=== PATIENT | male | born 1995 | race Hispanic/Latino ===

== ENCOUNTER 2023-10-29 19:08 | Emergency (ER) | payer BC, SELFPAY ==
[2023-10-29 19:15] VITALS: BP 154/105; PULSE 108; RESP 16; TEMP 36.2; O2SAT 99; BMI 32.3
--- NOTE | 2023-10-29 19:20 | DI.RAD.S_ITS ---
PROCEDURE: XR CLAVICLE LT INDICATIONS: fell skateboarding TECHNIQUE: 2 views of the clavicle were acquired. COMPARISON: None. FINDINGS: Bones: Acromioclavicular separation measuring approximately 17 millimeters. No acute fractures are seen. No suspicious bony lesions. Soft tissues: No suspicious soft tissue calcifications. IMPRESSION: AC separation consistent with [place] type 3 classification. No acute fracture seen. Dictated by: Robel Lee M.D. on 10/29/2023 at 19:53 Approved by: Robel Lee M.D. on 10/29/2023 at 19:55
--- NOTE | 2023-10-29 19:55 | ED.GENADULT ---
HPI - General Adult General Chief complaint: Extremity Injury, Upper Stated complaint: lt shoulder inj Time Seen by Provider: 10/29/23 19:37 Source: patient Mode of arrival: Ambulatory History of Present Illness HPI narrative: 28-year-old male here for evaluation of a left shoulder injury. He states he was at a skate park earlier today. He states that he fell and landed on the top of his shoulder. He states that he feels like his clavicle is dislocated. He has broken his right clavicle in the past. No other injuries from the event. Did not hit his head. No loss of consciousness. Related Data Previous Rx's Medication Instructions Recorded hydrocodone 5 mg-acetaminophen 325 1 tab PO TID PRN pain #14 tabs 10/29/23 mg tablet Allergies Allergy/AdvReac Type Severity Reaction Status Date / Time No Known Drug Allergies Allergy Verified 10/29/23 19:15 Review of Systems Constitutional Constitutional: Reports system reviewed and no additional complaints, except as documented Musculoskeletal Musculoskeletal: Reports system reviewed and no additional complaints, except as documented Integumentary/Breasts Skin/Breast: Reports system reviewed and no additional complaints, except as documented Neurologic Neurologic: Reports system reviewed and no additional complaints, except as documented Patient History Social History Smoking Status: Never smoker Smoking Status: Never smoker alcohol intake frequency: a few times a week Alcohol type: beer Substance Use Type: marijuana Exam Initial Vital Signs Initial Vital Signs: Vital Signs Temperature 97.2 F L 10/29/23 19:15 Pulse Rate 108 H 10/29/23 19:15 Respiratory Rate 16 10/29/23 19:15 Blood Pressure 154/105 H 10/29/23 19:15 Pulse Oximetry 99 10/29/23 19:15 Oxygen Delivery Method Room Air 10/29/23 19:15 HENMT Head: normal to inspection and normocephalic Skin Other: Tenting of the skin of the left AC joint but no breaks in the skin Extrem Other: Obvious tenting of the distal portion of the left clavicle. Course Orders Ordered: ED Orders 10/29/23 19:20 XR clavicle LT Stat Vital Signs Vital signs: Vital Signs - 8 hr 10/29/23 19:15 Temperature 97.2 F L Pulse Rate 108 H Respiratory Rate 16 Blood Pressure 154/105 H Pulse Oximetry 99 Oxygen Delivery Method Room Air Medical Decision Making Imaging Data Extremity x-ray #1: Radiologist's Impression: PROCEDURE: XR CLAVICLE LT INDICATIONS: fell skateboarding TECHNIQUE: 2 views of the clavicle were acquired. COMPARISON: None. FINDINGS: Bones: Acromioclavicular separation measuring approximately 17 millimeters. No acute fractures are seen. No suspicious bony lesions. Soft tissues: No suspicious soft tissue calcifications. IMPRESSION: AC separation consistent with [place] type 3 classification. No acute fracture seen. MDM Narrative Medical decision making narrative: Patient does a grade 3 left AC separation. No dislocations noted. Patient was placed in his sling for comfort. Will provide pain medication. Instructions for follow-up with Orthopedic surgery. Patient became angry during his stay. Unsure of the reason for this. I advised him that we would provide pain medication when I left the room after my initial evaluation. Patient was discharged but left the emergency department prior to receiving his discharge paperwork. Discharge Plan Departure Patient Disposition: Home Clinical Impression: shoulder Instructions: DI for AC Joint Separation Activity Restrictions/Additional Instructions: The sling is for your comfort. You can take it off to shower. I do recommend that you contact the Orthopedic Department of the number provided below for a follow-up. Use the pain medication as needed. Return to the emergency department for new symptoms. Prescriptions: New hydrocodone-acetaminophen 5-325 mg tablet 1 tab PO TID PRN (Reason: pain) Qty: 14 0RF Referrals: Ebony Chavis MD [Physician] - Stand Alone Forms: Patient Portal/API
== END 2023-10-29 20:12 | disposition home or self-care (01) ==
PROVIDERS: Emergency Provider Emergency Medicine
DX: S43.006A Unspecified dislocation of unspecified shoulder joint, initial encounter (principal); V00.131A Fall from skateboard, initial encounter
CPT/HCPCS: 73000; 99282; 99283

== ENCOUNTER 2024-02-26 19:53 | Emergency (ER) | payer BC, SELFPAY ==
[2024-02-26] VITALS (7 sets, daily range): BP systolic 140–180; BP diastolic 75–111; PULSE 85–137; RESP 8–22; TEMP 36.9–37.2; O2SAT 95–100; BMI 34.1
--- NOTE | 2024-02-26 19:59 | DI.RAD.S_ITS ---
PROCEDURE: XR CHEST 1V INDICATIONS: chest pain TECHNIQUE: One view of the chest was acquired. COMPARISON: Located Within [facility], CR, XR CHEST 1 VIEW, 01/30/2024, 11:02. Located Within [facility], CR, XR CHEST 1 VIEW, 04/10/2023, 22:33. FINDINGS: Surgical changes and devices: Prior postoperative change of the left distal clavicle can be seen, with removal of the prior hardware. Lungs and pleura: On this semiupright portable chest examination, no large pneumothorax or large pleural effusions are seen. No focal infiltrates are seen. Mediastinum: Mediastinal contours appear normal. Heart size is normal. Bones and chest wall: No suspicious bony lesions. Posttraumatic changes can be seen in both distal clavicles. Overlying soft tissues appear unremarkable. IMPRESSION: Limited portable chest examination, without a significant cardiopulmonary abnormality identified. Prior postoperative and posttraumatic changes can be seen. Dictated by: Juan M Farias M.D. on 02/26/2024 at 19:28 Approved by: Juan M Farias M.D. on 02/26/2024 at 19:29
[2024-02-26] MEDS: ASPIRIN 81 MG CHEW TAB 324 MG PO (20:05)
--- NOTE | 2024-02-26 20:05 | EKG_ITS ---
[address] [address] Test Date: 2024-02-26 Pat Name: Mitchell Sanchez [facility] Room: Gender: Male Building Drafter: : 1995 Requested By: Order Number: [id number] Reading MD: Linden Souza Measurements Intervals [place] Rate: 123 P: 34 RI: 132 QRS: 84 QRSD: 82 T: 29 QT: 306 QTc: 438 Interpretive Statements Sinus tachycardia Doubt Septal infarct Possible Lateral infarct , age undetermined Electronically Signed On 02-28-2024 8:46:29 PDT by Linden Souza
--- NOTE | 2024-02-26 20:18 | ED_ITS ---
HPI - Chest Pain General Chief Complaint: Chest Pain Stated Complaint: chest px, takes meds for cardiac Time Seen by Provider: 02/26/24 20:08 Source: patient Mode of arrival: Ambulatory History of Present Illness HPI narrative: Patient is a 21-year-old male. He does have history of anxiety. The chief complaint states he takes ?cardiac? medications however the medication that he describes is hydroxyzine for anxiety. He states that he did drink quite a bit last evening. He also did some cocaine last evening. He states he was very ?hung over? today. He did smoke some marijuana this morning. He was here for evaluation of palpitations, chest discomfort and increased anxiety. No fevers. No shortness of breath. No abdominal pain. Related Data Previous Rx's Medication Instructions Recorded hydrocodone 5 mg-acetaminophen 325 1 tab PO TID PRN pain #14 tabs 10/29/23 mg tablet Allergies Allergy/AdvReac Type Severity Reaction Status Date / Time No Known Drug Allergies Allergy Verified 02/26/24 19:55 Review of Systems Review of Systems ROS Unobtainable: All systems reviewed & are unremarkable except as noted in HPI and below Patient History Social History Smoking Status: Never smoker Smoking Status: Never smoker alcohol intake frequency: a few times a week Alcohol type: beer Substance Use Type: marijuana and crack/cocaine Exam Initial Vital Signs Initial Vital Signs: Vital Signs Temperature 99.0 F 02/26/24 19:55 Pulse Rate 137 H 02/26/24 19:55 Respiratory Rate 18 02/26/24 19:55 Blood Pressure 180/111 H 02/26/24 19:55 Pulse Oximetry 99 02/26/24 19:55 Oxygen Delivery Method Room Air 02/26/24 19:55 Const General: cooperative, well developed and No ill appearing HENNJ Head: normal to inspection and normocephalic Resp Effort & Inspection: normal respiratory effort Auscultation: clear to auscultation bilaterally Cardio Rate: tachycardic Rhythm: regular rhythm GI Inspection: normal to inspection Skin General: no rashes or lesions noted Neuro General: patient alert, patient awake and moves all extremities Extrem General: capillary refill normal Course Orders Ordered: ED Orders 02/26/24 19:59 XR chest 1V Stat EKG-12 Lead Stat 02/26/24 20:00 Complete Blood Count AUTO DIFF Stat Comprehensive Metabolic Panel Stat Lipase Stat Magnesium Stat Troponin & CK Cardiac Panel Stat Discontinued Medications Aspirin (Aspirin 81 Mg Chew Tab) 324 mg PO NOW ONE Stop: 02/26/24 20:00 Last Admin: 02/26/24 20:05 Dose: 324 mg Documented By: Sodium Chloride (Normal Saline 0.9%) 1,000 mls @ 1,000 mls/hr IV BOLUS ONE Stop: 02/26/24 21:17 Last Infusion: 02/26/24 21:40 Dose: Infused Documented By: Admin: 02/26/24 20:20 Dose: 1,000 mls/hr Documented By: Propranolol HCl (Propranolol 10 Mg Tablet) 10 mg PO NOW ONE Stop: 02/26/24 20:16 Last Admin: 02/26/24 20:21 Dose: 10 mg Documented By: Vital Signs Vital signs: Vital Signs - 8 hr 02/26/24 19:55 02/26/24 20:18 02/26/24 20:30 Temperature 99.0 F Pulse Rate 137 H 131 H 124 H Respiratory Rate 18 22 18 Blood Pressure 180/111 H Pulse Oximetry 99 99 100 Oxygen Delivery Method Room Air Room Air 02/26/24 20:52 02/26/24 21:00 02/26/24 21:30 Temperature Pulse Rate 98 H 100 H 90 Respiratory Rate 8 L 18 Blood Pressure 140/103 H Pulse Oximetry 95 95 Oxygen Delivery Method 02/26/24 21:41 Temperature 98.5 F Pulse Rate 85 Respiratory Rate 18 Blood Pressure 140/75 Pulse Oximetry 98 Oxygen Delivery Method Room Air MDM - Chest Pain Lab Data Attestation: I reviewed the patient's lab results. 02/26/24 20:00 02/26/24 20:00 Labs: Lab Results 02/26/24 Range/Units 20:00 WBC 11.3 H (4.5-11.0) X10^3/uL RBC 5.28 (4.5-5.9) X10^6/uL Hgb 17.7 H (13.5-17.5) g/dL Hct 49.9 (41-53) % MCV 94.6 (80-100) fL MCH 33.5 (26-34) PG MCHC 35.4 (30-36) % RDW 13.7 (11.6-14.8) % Plt Count 331 (150-400) X10^3/uL Neut % (Auto) 73.6 (50-75) % Lymph % (Auto) 20.9 L (25-40) % [place] % (Auto) 3.9 (3-14) % Eos % (Auto) 0.6 L (2-4) % Baso % (Auto) 1.0 (0-2) % Neut # (Auto) 8300 H (6429-3663) /uL Lymph # (Auto) 2400 (6112-5176) /uL [place] # (Auto) 400 (0-900) /uL Eos # (Auto) 100 (0-450) /uL Baso # (Auto) 100 (0-100) /uL PT Cancelled INR Cancelled APTT Cancelled Sodium 141 (137-145) mmol/L Potassium 4.0 (3.4-5.1) mmol/L Chloride 104 (98-107) mmol/L Carbon Dioxide 27 (22-32) mmol/L BUN 9 (9-20) mg/dL Creatinine 0.88 (0.66-1.25) mg/dL Estimated GFR > 60 (>60) mL/min BUN/Creatinine Ratio 10.2 (6-22) Glucose 103 H (70-100) mg/dL Calcium 9.8 (8.4-10.2) mg/dL Magnesium 1.5 L (1.6-2.3) mg/dL Total Bilirubin 0.9 (0.2-1.3) mg/dL AST 43 (17-59) IU/L ALT 57 H (<50) IU/L Alkaline Phosphatase 92 (38-126) U/L Total Creatine Kinase 127 (55-170) U/L Troponin I < 0.012 (0.01-0.034) ng/mL NT-Pro-B Natriuret Pep Cancelled Total Protein 8.8 H (6.3-8.2) g/dL Albumin 4.6 (3.5-5.0) g/dL Globulin 4.2 H (1.7-4.1) g/dL Albumin/Globulin Ratio 1.1 (1.0-2.8) Lipase 82 (23-300) U/L Imaging Data Chest x-ray: Radiologist's Impression: PROCEDURE: XR CHEST 1V INDICATIONS: chest pain TECHNIQUE: One view of the chest was acquired. COMPARISON: [facility], CR, XR CHEST 1 VIEW, 01/30/2024, 11:02. [facility], CR, XR CHEST 1 VIEW, 04/10/2023, 22:33. FINDINGS: Surgical changes and devices: Prior postoperative change of the left distal clavicle can be seen, with removal of the prior hardware. Lungs and pleura: On this semiupright portable chest examination, no large pneumothorax or large pleural effusions are seen. No focal infiltrates are seen. Mediastinum: Mediastinal contours appear normal. Heart size is normal. Bones and chest wall: No suspicious bony lesions. Posttraumatic changes can be seen in both distal clavicles. Overlying soft tissues appear unremarkable. IMPRESSION: Limited portable chest examination, without a significant cardiopulmonary abnormality identified. Prior postoperative and posttraumatic changes can be seen. ECG Data Attestation: I personally reviewed and interpreted this ECG as follows: Interpretation: Sinus tachycardia Normal axis Normal QRS No ST T wave changes MDM Narrative Medical decision making narrative: After propranolol patient's heart rate improved and his symptoms resolved. Low suspicion for ACS. Low suspicion for PE. Chest x-ray is unremarkable. I do suspect that there was a component of anxiety also residual effects from being hung over in his alcohol use last night and also his cocaine use. After a period of observation patient stated that he was feeling much better. His symptoms have now almost completely resolved. Vital signs are improve. Will discharge patient home with return precautions. He expressed understanding and agreement. Discharge Plan Departure Patient Disposition: Home Clinical Impression: Tachycardia Instructions: DI for Tachycardia Activity Restrictions/Additional Instructions: Continue to take any medications as directed. Contact your primary care doctor for a follow-up. Return to the emergency department for new or worsening symptoms. Prescriptions: No Action hydrocodone-acetaminophen 5-325 mg tablet 1 tab PO TID PRN (Reason: pain) Qty: 14 0RF Referrals: Miscellaneous,DoctorMD [Primary Care Provider] - Stand Alone Forms: Patient Portal/API
[2024-02-26] MEDS: SODIUM CHLORIDE 0.9% 1,000 ML 1000 ML IV (20:20)
[2024-02-26] MEDS: PROPRANOLOL 10 MG TABLET PO (20:21)
[2024-02-26 20:26] LABS: Add Manual Diff / Slide Review NO; Basophils Absolute Auto 100 /uL (0-100); Eosinophils Absolute Auto 100 /uL (0-450); Eosinophils Percent Auto 0.6 % (2-4); Hematocrit 49.9 % (41-53); Hemoglobin 17.7 g/dL (13.5-17.5); Lymphocytes Absolute Auto 2400 /uL (1100-4500); Lymphocytes Percent Auto 20.9 % (25-40); Mean Corpuscular HGB Conc 35.4 % (30-36); Mean Corpuscular Hemoglobin 33.5 PG (26-34); Mean Corpuscular Volume 94.6 fL (80-100); Monocytes Absolute Auto 400 /uL (0-900); Monocytes Percent Auto 3.9 % (3-14); Neutrophils Absolute Auto 8300 /uL (1500-7000); Neutrophils Percent Auto 73.6 % (50-75); Platelet Count 331 X10^3/uL (150-400); Red Blood Cell Count 5.28 X10^6/uL (4.5-5.9); Red Cell Distribution Width 13.7 % (11.6-14.8); White Blood Cell Count 11.3 X10^3/uL (4.5-11.0)
[2024-02-26 20:27] LABS: Alanine Aminotransferase 57 IU/L (<50); Albumin 4.6 g/dL (3.5-5.0); Albumin Globulin Ratio 1.1 (1.0-2.8); Alkaline Phosphatase 92 U/L (38-126); Aspartate Aminotransferase 43 IU/L (17-59); BUN Creatinine Ratio 10.2 (6-22); Bilirubin Total 0.9 mg/dL (0.2-1.3); Blood Urea Nitrogen 9 mg/dL (9-20); Calcium 9.8 mg/dL (8.4-10.2); Carbon Dioxide 27 mmol/L (22-32); Chloride 104 mmol/L (98-107); Creatine Kinase 127 U/L (55-170); Estimated Glomerular Filt Rate > 60 mL/min (>60); Globulin 4.2 g/dL (1.7-4.1); Glucose 103 mg/dL (70-100); HEMOLYSIS < 15 (0-50); Lipase 82 U/L (23-300); Magnesium 1.5 mg/dL (1.6-2.3); Sodium 141 mmol/L (137-145); Total Protein 8.8 g/dL (6.3-8.2)
[2024-02-26 20:38] LABS: Troponin I < 0.012 ng/mL (0.01-0.034)
--- NOTE | 2024-02-26 20:48 | PC.NURSE ---
Pt's HR coming down from 134-101. Starting to feel better.
== END 2024-02-26 21:42 | disposition home or self-care (01) ==
PROVIDERS: Emergency Provider Emergency Medicine
DX: R00.0 Tachycardia, unspecified (principal); R07.9 Chest pain, unspecified; F14.90 Cocaine use, unspecified, uncomplicated
CPT/HCPCS: 36415; 71045; 80053; 82550; 83690; 83735; 84484; 85025; 93005; 99284